=== PATIENT | male | born 1995 | race Caucasian/White ===

== ENCOUNTER 2019-02-21 10:44 | Inpatient (IN) | payer OTHER ==
[~2019-02-21] VITALS: Ht 170.2 cm; Wt 59.9 kg
[2019-02-21 10:58] VITALS: Ht 170.2 cm; Wt 59.9 kg
[2019-02-21 11:17] LABS: BASOPHIL % 0.1 % (0-2); PLATELET COUNT 367 x10^3mcL (130-400); RED CELL DISTRIBUTION WIDTH 13.4 % (11.5-14.5)
--- NOTE | 2019-02-21 11:26 | NUR ---
RUQ ABD PAIN 10/12 WITH N/V FOR 2 DAYS WITHOUT ASSOCIATED FEVERS. TENDER TO PALP WITHOUT PALP MASSES PRESENT. PT CLAIMS HE HAS HX OF RUPTURED APPI WITHOUT REMOVAL OF APPENDIX. PT ARRIES ALERT AND ORIENTED AFEBRILE WITH VSS AND NO DISTRESS NOTED. DR SHRESTHA SAW PT
--- NOTE | 2019-02-21 11:26 | NUR ---
DR AYOUB SAW PT NOT DONY SHRESTHA
[2019-02-21 11:35] LABS: CALCIUM 8.8 mg/dL (8.5-10.1); CARBON DIOXIDE 26.7 mmol/L (21-32); CHLORIDE SERUM 100 mmol/L (98-107); CREATININE SERUM 0.9 mg/dL (0.7-1.3); GFR1 > 60 mL/min; GLUCOSE SERUM 93 mg/dL (74-106); POTASSIUM SERUM 3.6 mmol/L (3.5-5.1); SODIUM SERUM 137 mmol/L (136-145)
[2019-02-21 11:39] LABS: ALBUMIN 3.8 g/dL (3.4-5.0); ALKALINE PHOSPHATASE 77 U/L (46-116); ALT/SGPT 76 U/L (16-63); AST/SGOT 35 U/L (15-37); LIPASE 64 IU/L (73-393)
--- NOTE | 2019-02-21 12:01 | NUR ---
PT LEFT FOR CT VIA W/C
--- NOTE | 2019-02-21 13:32 | NUR ---
PT TO BE ADMITTED AND AWARE. AWAITING M/S BED
[2019-02-21 15:35] LABS: MAGNESIUM 1.8 mg/dL (1.8-2.4); PHOSPHOROUS 3.6 mg/dL (2.5-4.9)
--- NOTE | 2019-02-21 16:17 | NUR ---
REPORT GIVEN TO CONG Anders/Dulce Maria CARTAGENA. VSS AND NO DISTRESS NOTED
[2019-02-21 16:58] VITALS: BP 119/64
--- NOTE | 2019-02-21 17:20 | NUR ---
RECEIVED PT VIA W/C FROM E/D, ACCOMPANIED BY TRANSPORTER AND PT'S FRIEND. PT A/A/O X 4, CALM, COOPERATIVE; STATED THAT HE SMOKES UP TO 1GM THC/DAY. AMBULATORY, NO GAIT OR BALANCE IMPAIRMENT NOTED WHEN WALKING FROM W/C TO BED. DENIES CHEST PAIN OR DISCOMFORT AT THIS TIME. SCD BY BEDSIDE. NO ACUTE RESPIRATORY DISTRESS NOTED. ABD SOFT, FLAT, TENDERNESS ON PALPATION TO RLQ (C/O INT SHARP RLQ PAIN 5/10, EXACERBATED BY MOVEMENT, RELIEVED MOSTLY BY REST, MILDLY BY PAIN MEDICATION), NORMOACTIVE BOWEL SOUNDS X 4 QUADS, LAST BM 02/21/19, DIARRHEA. VOIDS FREELY, C/O DARK YELLOW URINE AND DECREASED URINE O/P. IV SITE LFA 20G, CDI. ORIENTED PT TO ROOM, BED CONTROLS, CALL LIGHT SYSTEM. SIDE RAILS UP X 2, BED IN LOW POSITION. WILL ENDORSE TO OSIEL WILL.
--- NOTE | 2019-02-21 17:35 | NUR ---
PT STABLE, DENIES ANY PAIN OR DISTRESS. AMBULATORY WITH NO ASSISTANCE. MOTHER AT BEDSIDE. SAFETY PRECAUTIONS IN PLACE, CALL LIGHT WITHIN REACH, WILL CONT TO MONITOR.
--- NOTE | 2019-02-21 18:11 | NUR ---
ZOFRAN GIVEN PER EMAR FOR C/O NAUSEA, WILL REASSESS.
--- NOTE | 2019-02-21 18:41 | NUR ---
PT STABLE WITH NO C/O ANY PAIN OR DISTRESS AT THIS TIME. FAMILY AT BEDSIDE. A/OX4. NS 100ML/HR RUNNING IN LFA, CDI AND PATENT. SAFETY PRECAUTIONS IN PLACE, CALL LIGHT WITHIN REACH, WILL ENDORSE CARE TO NIGHT NURSE.
--- NOTE | 2019-02-21 19:25 | NUR ---
RECIEVED PT RESTING IN BED, NO ACUTE DISTRESS NOTED. PT AOX4, DENIES QUEEN/DIZZINESS. MEDSURG PT, DENIES CP. PULSES PALPABLE BILAT, DENIES NUMBNESS/TINGLING IN FEET. RESP EVEN AND UNLABORED ON RA, DENIES SOB. ABD SOFT, FLAT, HYPERACTIVE BOWEL SOUNDS. PT REPORTS LMB= 02/21 DIARREA. PT VOIDS FREELY, DENIES DYSURIA. AMB. SKIN INTACT. REPORTS PAIN UNDER CONTROL AT THIS TIME. IV SITE TO THE RAC PATENT, NS @ 100ML/HR. NO REDNESS, SWELLING OR PAIN NOTED. CALL LIGHT WITHIN REACH, BED IN LOWEST POSITION, WILL CONTINUE TO MONITOR.
[2019-02-21 20:34] VITALS: BP 125/73
[2019-02-22 04:51] VITALS: BP 113/69
--- NOTE | 2019-02-22 05:10 | NUR ---
PT RESTED IN INTERVALS DURING SHIFT, NO ACUTE CHANGES OCCURRING OVERNIGHT. PT REPORTS TWO EPISODES OF DIARRHEA DURING SHIFT WITH NO RELIEF OF ABD CRAMPING AFTER BM. PT REPORTS MEDICATION WORKS ALTHOUGH PAIN COMES BACK QUICKLY. PT REMAINS AFEBRILE DURING SHIFT ALTHOUGH STS HE HAD ONE EPISODE OF CHILLS W/O DIAPHORESIS. PT REPORTS HIS TEMP SEEMED TO STABLIZE AFTER SOME TIME, MEIDCATED X1 WITH ZOFRAN AND X2 WITH MORPHINE. IV SITE REMAINS PATENT TO THE LAC, NS @ 100ML/HR, NO REDNESS, SWELLING OR PAIN NOTED. PT TOLERATING ANTIBIOTICS. ALL COMFORT AND SAFETY MEASURES PROVIDED FOR, CALL LIGHT WITHIN REACH, BED IN LOWEST POSITION, WILL CONTINUE TO MONITOR.
[2019-02-22 06:07] LABS: BASOPHIL % 0.3 % (0-2); PLATELET COUNT 283 x10^3mcL (130-400)
[2019-02-22 06:46] LABS: CALCIUM 8.4 mg/dL (8.5-10.1); CARBON DIOXIDE 25.7 mmol/L (21-32); CHLORIDE SERUM 104 mmol/L (98-107); CREATININE SERUM 0.8 mg/dL (0.7-1.3); GFR1 > 60 mL/min; GLUCOSE SERUM 80 mg/dL (74-106); POTASSIUM SERUM 3.6 mmol/L (3.5-5.1); SODIUM SERUM 139 mmol/L (136-145)
--- NOTE | 2019-02-22 07:10 | NUR ---
RECIEVED PT RESTING IN BED WITH NO C/O ANY PAIN OR DISTRESS AT THIS TIME. A/O X4. LUNGS CTAB. NS RUNNING 100ML/HR IN LFA, CDI AND PATENT. SAFETY PRECAUTIONS IN PLACE, CALL LIGHT WITHIN REACH, WILL MONITOR.
--- NOTE | 2019-02-22 07:22 | NUR ---
ENDORSED ALL CARE TP DAYSHIFT NURSE, NO ACUTE DISTRESS NOTED. ALL QUESTIONS AND CONCERNS ADDRESSED, ALL COMFORT AND SAFETY MEASURES PROVIDED FOR, CALL LIGHT WITHIN REACH, BED IN LOWEST POSITION.
[2019-02-22 08:44] VITALS: BP 116/71
[2019-02-22 13:03] VITALS: BP 133/73
--- NOTE | 2019-02-22 13:10 | NUR ---
PT TAKEN DOWN FOR SURGERY BY OSIEL BUTCHER AND MOTHER AT BEDSIDE. ALL PRE-OP CONSENTS SIGNED BY PT AND ALL PRE-OP PREP/INSTRUCTIONS DONE AND GIVEN. CHARGE AWARE.
[2019-02-22 15:25] VITALS: BP 146/77
--- NOTE | 2019-02-22 15:43 | NUR ---
PT BACK FROM SURGERY. VS: BP 146/77, HR 88, RR 16, TEMP 98.5, SAT 98%. MORPHINE GIVEN PER EMAR FOR C/O 9/10 ABD PAIN AND ZOFRAN GIVEN PER EMAR FOR C/O NAUSEA. A/O X4. X3 ABD INSISIONS COVERED WITH BANDAIDS AND X1 JENNIE DRAIN. DRESSINGS CDI. NO DISTRESS NOTED, MOTHER AT BEDSIDE, WILL CONTINUE TO MONITOR.
--- NOTE | 2019-02-22 17:23 | NUR ---
NORCO GIVEN PER EMAR FOR C/O 11/12 ABD PAIN. COLD COMPRESSES GIVEN ALSO. WILL REASSESS.
[2019-02-22 17:30] VITALS: BP 147/80
--- NOTE | 2019-02-22 18:10 | NUR ---
PT STABLE WITH NO DISTRESS NOTED. MOTHER AT BEDSIDE. A/OX4. LUNGS CTAB. X3 ABD INCISIONS COVERED WITH BANDAIDES AND X1 JENNIE DRAIN. 45 ML TOTAL OUTPUT ALL SHIFT. NS 100ML/HR RUNNING IN LFA, CDI AND PATENT. SAFETY PRECAUTIONS IN PLACE, CALL LIGHT WITHIN REACH, WILL ENDORSE CARE TO NIGHT NURSE.
--- NOTE | 2019-02-22 19:15 | NUR ---
RECIEVED PT RESTING IN BED WITH NO ACUTE DISTRESS NOTED AT THIS TIME, ASSESSMENT PERFORMED AT THIS TIME, PT IS A/OX4, NO COMPLAINTS OF QUEEN OR DIZZINESS NOTED AT THIS TIME, PT DENIES PAIN OR SOB, PT HAS ABD INCISIONS X3 CLOSED WITH SUTURES AND APOLINAR, AND COVERED WITH BANDAIDS, MINIMAL DRAINAGE AT THIS TIME, ALSO ONE JENNIE DRAIN TO MEDIAL ABD TO BULB SUCTION, IV TO THE LAC INFUSING, NS AT 100ML PER HOUR, ALL T NEEDS ATTENDED TO, SAFETY PRECAUTIIONS IN PLACE, WILL CONTINUE TO MONITOR
--- NOTE | 2019-02-22 21:10 | NUR ---
PT RESTING IN BED WITH NO ACUTE DISTRESS NOTED, PT REPORTS PAIN IS AT A TOLERABLE LEVEL, ALL PT NEEDS ATTENDED TO, SAFETY PRECAUTIONS IN PLACE, WILL CONTINUE TO MONITOR
[2019-02-22 21:53] VITALS: BP 121/73
--- NOTE | 2019-02-23 00:35 | NUR ---
PT RESTING IN BED WITH NO ACUTE DISTRESS NOTED AT THIS TIME, PT REPORTS TOLERABLE PAIN AT THIS TIME, DRESSINGS ARE CDI WITH MINOR BLOODY DRAINAGE, ALL NEEDS ATTENDED TO SAFETY PRECAUTIONS IN PLACE, WILL CONTINUE TO MONITOR
[2019-02-23 05:09] VITALS: BP 131/75
--- NOTE | 2019-02-23 06:26 | NUR ---
PT RESTED IN BED WITH EPISODIC PAIN THROUGH THE NIGHT WHICH WAS TREATED WITH PRN MORPHINE AND NORCO PER PRN ORDER, DRESSINGS HAD MINIMAL DRAINAGE, ALL PT NEEDS WERE ATTENDED TO THROUGH THE NIGHT, SAFETY PRECAUTIONS REMAINED IN PLACE, WILL CONTINUE TO MONITOR AND ENDORSE CARE TO ONCOMING SHIFT
[2019-02-23 06:48] LABS: PLATELET COUNT 323 x10^3mcL (130-400); RED CELL DISTRIBUTION WIDTH 12.7 % (11.5-14.5)
[2019-02-23 06:53] LABS: CALCIUM 8.8 mg/dL (8.5-10.1); CARBON DIOXIDE 29.6 mmol/L (21-32); CHLORIDE SERUM 102 mmol/L (98-107); CREATININE SERUM 0.7 mg/dL (0.7-1.3); GFR1 > 60 mL/min; GLUCOSE SERUM 92 mg/dL (74-106); POTASSIUM SERUM 3.6 mmol/L (3.5-5.1); SODIUM SERUM 139 mmol/L (136-145)
[2019-02-23 07:12] LABS: BASOPHIL % 0 % (0-2)
--- NOTE | 2019-02-23 07:15 | NUR ---
RECEIVED PT. IN BED A/A/O X3. NO SOB, NO N/V NOTED. PT. DENIES ANY PAIN AT THIS TIME. NS RUNNING AT 100 CC/HR VIA IV SITE AT L FA. PT. WAS ENCOURAGED TO BE OOB AND AMBULATE TOLERATED. BED IN LOW POS., CALL LIGHT WITHIN REACH. SIDE RAILS UP X3.
[2019-02-23 08:40] VITALS: BP 144/95
[2019-02-23 13:10] VITALS: BP 127/76
[2019-02-23 17:32] VITALS: BP 145/85
--- NOTE | 2019-02-23 17:49 | NUR ---
JENNIE OUTPUT= 75 CC (SEROSANGUINEOUS). PT. AMBULATED IN HALLWAY X 3 DURING SHIFT TODAY. PT. STATED HE HAS BEEN BURPING POST-OP BUT STILL NOT PASSING GAS YET. WILL CONTINUE TO MONITOR.
--- NOTE | 2019-02-23 19:30 | NUR ---
RECEIVED PT IN BED AWAKE, ALERT,ORIENTED X4. LUNGS CTA. NO SOB ON ROOM AIR. BOWEL SOUNDS HYPOACTIVE. SX SITE TO ABDOMEN W/ BANDAID X3. W/ J-P X1 W/ SS W/ SMALL AMOUNT OF SS DRAINAGE. W/ IVF NS AT 100 CC/HR VIA LTFA. CALL LIGHT W/IN REACH.
--- NOTE | 2019-02-23 20:10 | NUR ---
PT AMBULATED IN THE HALLWAY THEN STATED HE PASSED A LITTLE GAS.
--- NOTE | 2019-02-23 20:32 | NUR ---
PT MEDICATED W/ MORPHINE SULFATE 2 MG IV FOR C/O POST-OP PAIN 10/12.
[2019-02-23 21:15] VITALS: BP 135/82
--- NOTE | 2019-02-24 02:17 | NUR ---
PT STATED HE IS PASSING MORE GAS AND PAIN IS NOT MUCH ALTHOUGH HE IS REQUESTING FOR MORPHINE FOR PAIN LEVEL OF 6/10. PT MEDICATED W/ MORPHINE 2 MG IV ORDERED.
--- NOTE | 2019-02-24 04:25 | NUR ---
PT AWAKE AND STATED"I FEEL SO COMFORTABLE RIGHT NOW. I'VE BEEN PASSING A LOT OF GAS".
[2019-02-24 05:02] VITALS: BP 129/83
--- NOTE | 2019-02-24 05:24 | NUR ---
PT SLEPT AT LONG INTERVALS. HE WAS MEDICATED FOR PAIN X2. PT VERBALIZED FEELING BETTER THE NIGHT PROGRESSED. HE IS BURPING AND PASSING GAS. HE IS AFEBRILE THROUGHOUT THE NIGHT. J-P W/ 155 CC SS DRAINAGE. IVF NS INFUSING WELL AT 100 CC/HR VIA LTFA. ALL NEEDS ATTENDED TO.
[2019-02-24 07:06] LABS: CALCIUM 8.6 mg/dL (8.5-10.1); CHLORIDE SERUM 103 mmol/L (98-107); CREATININE SERUM 0.7 mg/dL (0.7-1.3); GFR1 > 60 mL/min; GLUCOSE SERUM 91 mg/dL (74-106); POTASSIUM SERUM 3.5 mmol/L (3.5-5.1); SODIUM SERUM 138 mmol/L (136-145)
[2019-02-24 07:16] LABS: BASOPHIL % 0.1 % (0-2); PLATELET COUNT 302 x10^3mcL (130-400); RED CELL DISTRIBUTION WIDTH 13.3 % (11.5-14.5)
--- NOTE | 2019-02-24 07:35 | NUR ---
RECEIVED IN NO DISTRESS. AWAKE, ALERT AND ORIENTED. VS WNL. INCISION SITES WITH BANDAIDS INTACT. JENNIE DRAIN IN PLACE WITH MOD. S/S DRAINAGE. IVF INFUSING WELL. PT DENIES PAIN AT THIS TIME. PASSING GAS BUT NO BM YET. CALL LIGHT WITHIN REACH. WILL CONTINUE WITH PLAN OF CARE.
[2019-02-24 09:22] VITALS: BP 126/85
[2019-02-24] MEDS ORDERED: MOT600 PO (10:58)
--- NOTE | 2019-02-24 12:40 | NUR ---
PT C/O PAIN TO INCISION SITE 11/12, MEDICATED WITH NORCO PER PRN ORDER.
[2019-02-24 12:49] VITALS: BP 126/85
[2019-02-24 13:35] VITALS: BP 143/78
--- NOTE | 2019-02-24 14:33 | NUR ---
PT WILL BE DC'D HOME THIS PM. DC INSTRUCTIONS REVIEWED WITH PT AND RX TO BE PICKED UP IN PHARMACY. HL REMOVED AND SITE CLEAR. DRESSINGS TO INCISION SITES CHANGED, D/C/I. JENNIE DRAIN SECURED IN PLACE. PT TOLERATED WELL.NO C/O PAIN OR DISCOMFORT AT THIS TIME. PT WAITING FOR RIDE HOME.
== END 2019-02-24 14:48 | disposition home or self-care (01) | DRG 340 ==
LOC: ED 10:44 → MU 12:49
PROVIDERS: Emergency Medicine; Surgery; ADMIT Family Medicine
PROC: 0DTJ4ZZ Resection of Appendix, Percutaneous Endoscopic Approach (ICD-10-PCS; principal; 2019-02-22 13:00)
DX: K35.32 Acute appendicitis with perforation, localized peritonitis, and gangrene, without abscess (principal); K40.20 Bilateral inguinal hernia, without obstruction or gangrene, not specified as recurrent
CPT/HCPCS: 87046; 87046-59; G0378; J0690; J0696; J2175; J2250; J2270; J2405; J2543; J2704; J2710; J3010; J3490; J7030; J7120; Q9967